=== PATIENT | female | born 1955 | race African-American/Black ===

== ENCOUNTER 2018-08-17 14:44 | Emergency (ER) | payer SELFPAY ==
[~2018-08-17] VITALS: Ht 165.1 cm; Wt 65.0 kg
[2018-08-17] MEDS ORDERED: IBUPROFEN 800MG TABLET PO ONE (16:00)
[2018-08-17 17:46] VITALS: BP 115/68
== END 2018-08-17 17:48 | disposition home or self-care (01) ==
LOC: ER 14:44
DX: S80.01XA Contusion of right knee, initial encounter (principal); S30.0XXA Contusion of lower back and pelvis, initial encounter; W18.39XA Other fall on same level, initial encounter; Y93.89 Activity, other specified; Y92.89 Other specified places as the place of occurrence of the external cause; Y99.8 Other external cause status
CPT/HCPCS: 72110; 73562; 73590; 99284

== ENCOUNTER 2020-06-09 12:03 | Emergency (ER) | payer MEDICARE, MEDICAID ==
[~2020-06-09] VITALS: Ht 160 cm; Wt 75.0 kg
[2020-06-09] MEDS ORDERED: FAMOTIDINE 20MG/2ML VIAL IV STA (13:41)
[2020-06-09] MEDS ORDERED: ONDANSETRON HCL 4MG/2ML INJ IV ONE (14:00)
[2020-06-09 14:18] LABS: BASOPHILS % 0.5 % (0.0-2.0); EOSINOPHILS % 0.6 % (0.0-5.0); HEMATOCRIT. 43.2 % (36.0-48.0); HEMOGLOBIN. 14.4 g/dL (12.0-16.0); LYMPHOCYTES % 26.4 % (20.0-50.0); MEAN CORPUSCULAR HEMOGLOBIN 29.3 pg (28.0-32.0); MEAN CORPUSCULAR VOLUME 88.2 fL (81.0-99.0); MONOCYTES % 6.5 % (2.0-8.0); PLATELET 329 x1000/uL (130-400); RED CELL DISTRIBUTION WIDTH 15.7 % (11.6-14.6)
[2020-06-09] MEDS ORDERED: MORPHINE SULFATE 4 MG/ML CPJ (NOT FOR IM USE) IV STA (14:20)
[2020-06-09] MEDS ORDERED: SODIUM CHLORIDE 0.9% 1,000 ML IV ONE (14:20)
[2020-06-09 14:22] LABS: CLARITY URINE TURBID (CLEAR); COLOR URINE YELLOW (YELLOW); KETONES URINE 1+ (NEGATIVE); LEUKOCYTE ESTERASE URINE NEGATIVE (NEGATIVE); NITRITE URINE NEGATIVE (NEGATIVE); OCCULT BLOOD URINE NEGATIVE (NEGATIVE); PH URINE 8.5 (4.5-8.0); PROTEIN URINE 1+ (NEGATIVE); SPECIFIC GRAVITY URINE 1.022 (1.005-1.030); UROBILINOGEN URINE 0.2 E.U./dL (0.2-1.0)
[2020-06-09 14:23] LABS: CHLORIDE 107 mEq/L (98-107)
[2020-06-09] MEDS ORDERED: ONDANSETRON 4MG ODT PO ONE (17:00)
[2020-06-09 17:38] VITALS: BP 133/81
== END 2020-06-09 17:40 | disposition home or self-care (01) ==
LOC: ER 12:03
DX: R10.9 Unspecified abdominal pain (principal); R11.2 Nausea with vomiting, unspecified; E87.5 Hyperkalemia
CPT/HCPCS: 36415; 71045; 76705; 80053; 81003; 83690; 84484; 85025; 85610; 93005; 96361; 96374; 96375; 99285; J2270; J2405; J3490; J7030; Q0162